=== PATIENT | female | born 1955 | race Caucasian/White ===

== ENCOUNTER → 2017-11-07 15:00 | Outpatient (CLI) | payer OTHER, SELFPAY | PROVIDERS: PCP Internal Medicine | DX: Z23 Encounter for immunization (principal) | CPT/HCPCS: 90471; 90686 ==

== ENCOUNTER → 2018-05-10 12:58 | Outpatient (CLI) | payer OTHER, SELFPAY | PROVIDERS: PCP Internal Medicine; Visit Provider Internal Medicine | DX: M85.851 Other specified disorders of bone density and structure, right thigh (principal); Z78.0 Asymptomatic menopausal state; Z90.722 Acquired absence of ovaries, bilateral | CPT/HCPCS: 77080 ==

== ENCOUNTER → 2018-05-25 14:07 | Outpatient (CLI) | payer OTHER, SELFPAY ==
[2018-05-25 15:37] LABS: Blood Urea Nitrogen 16 mg/dL (7-17); Estimated Glomerular Filt Rate > 60.0 mL/min (>60)
== END ==
PROVIDERS: PCP Internal Medicine; Visit Provider Internal Medicine
DX: M89.9 Disorder of bone, unspecified (principal)
CPT/HCPCS: 36415; 82565; 84520

== ENCOUNTER → 2018-10-29 07:52 | Outpatient (CLI) | payer OTHER, SELFPAY ==
[2018-10-29 09:13] LABS: Aspartate Aminotransferase 42 IU/L (14-36); BUN Creatinine Ratio 52.5 (6-22); Blood Urea Nitrogen 21 mg/dL (7-17); Calcium 10.1 mg/dL (8.4-10.2); Carbon Dioxide 27 mmol/L (22-32); Chloride 98 mmol/L (98-107); Cholesterol 116 mg/dL (140-199); Estimated Glomerular Filt Rate > 60.0 mL/min (>60); Glucose 122 mg/dL (80-110); HDL Cholesterol 46 mg/dL (40-60); HEMOLYSIS < 15 (0-50); LDL Cholesterol Calculated 30 mg/dL (<100); Potassium 3.6 mmol/L (3.4-5.1); Sodium 139 mmol/L (137-145); Triglycerides 199 mg/dL (35-150)
[2018-11-01 15:29] LABS: Parathyroid Hormone Int 22 pg/mL (14-64)
== END ==
PROVIDERS: PCP Internal Medicine; Visit Provider Internal Medicine
DX: I10 Essential (primary) hypertension (principal); E78.2 Mixed hyperlipidemia; E21.3 Hyperparathyroidism, unspecified
CPT/HCPCS: 36415; 80048; 80061; 83970; 84450

== ENCOUNTER → 2019-10-13 15:22 | Outpatient (CLI) | payer OTHER, SELFPAY ==
[2019-10-14 10:47] LABS: COVID19 Sendout Not Detected (Not Detect)
== END ==
PROVIDERS: PCP Internal Medicine; Visit Provider Nurse Practitioner
DX: J02.9 Acute pharyngitis, unspecified (principal); R05 Cough; Z11.59 Encounter for screening for other viral diseases
CPT/HCPCS: 87635

== ENCOUNTER 2019-10-16 01:47 | Emergency (ER) | payer OTHER, SELFPAY ==
[2019-10-16 01:56] VITALS: BP 142/63; PULSE 93; RESP 19; TEMP 37.5; O2SAT 97; BMI 36.6
--- NOTE | 2019-10-16 02:13 | DI.RAD.S_ITS ---
PROCEDURE: XR CHEST 2V INDICATIONS: worsening cough with shortness of breath TECHNIQUE: 2 views of the chest were acquired. [facility], CR, CHEST 1 VIEW, 07/06/2008, 14:47. in theCOMPARISON: FINDINGS: Surgical changes and devices: Surgical clips at the GE junction is stable.. Lungs and pleura: Lungs are clear. No pleural effusions or pneumot right upper lobe are stable. horax. Calcified Mediastinum: Mediastinal contours are normal. Heart size is normal. Bones and chest wall: No suspicious bony abnormalities. Soft tissues appear unremarkable. IMPRESSION: No acute cardiopulmonary disease process. Dictated by: Joyce Falk MD, PhD on 10/16/2019 at 9:07 Approved by: Joyce Falk MD, PhD on 10/16/2019 at 9:09
--- NOTE | 2019-10-16 03:36 | ED.URI ---
HPI - URI/Sore Throat General Chief Complaint: Upper Respiratory Symptoms Stated Complaint: cough, green sputum, hoarse Time Seen by Provider: 10/16/19 03:20 Source: patient Mode of arrival: Ambulatory Limitations: no limitations History of Present Illness HPI Narrative: Patient complains cough cold congestion fever body aches for the past 5 days. Started last Monday. On Monday had coronavirus test which was negative. Patient denies any lung problems. Has history of diabetes. Has not been able seen her family doctor yet. Does not smoke. Complaints of sore throat as well secondary to coughing causing hoarseness MD Complaint: fever, cough, sore throat, rhinorrhea and nasal congestion Related Data Home Medications Medication Instructions Recorded Confirmed Multimineral/Multivitamin 1 tab PO QDAY #0 tab 11/09/12 10/13/19 (THERAGRAN M ) aspirin 81 mg PO QDAY #0 11/09/12 10/13/19 metformin [Glucophage XR] 500 mg NG BID #0 11/09/12 10/13/19 polyethylene glycol 3350 [Miralax] 17 gm PO QDAY #0 pds 11/13/12 10/13/19 acetaminophen 325 mg capsule 650 mg PO Q6H PRN 02/10/19 10/13/19 carvedilol 6.25 mg tablet 6.25 mg PO DAILY tab 02/10/19 10/13/19 rosuvastatin 40 mg tablet 40 mg PO DAILY 02/10/19 10/13/19 telmisartan 80 mg tablet 80 mg PO DAILY 02/10/19 10/13/19 Previous Rx's Medication Instructions Recorded albuterol sulfate [Ventolin HFA] 2 inhalation INHALATION QID PRN 10/16/19 #6.7 gram benzonatate 100 mg PO TID PRN #20 cap 10/16/19 Allergies Allergy/AdvReac Type Severity Reaction Status Date / Time adhesive tape [ADHESIVE TAPE] Allergy Unknown Verified 10/13/19 15:15 amlodipine Allergy peripheral Verified 10/13/19 15:15 edema lisinopril AdvReac cough Verified 10/13/19 15:15 Review of Systems Review of Systems Narrative: GENERAL: Complains chills, fatigue, malaise, fever, sweats. HEENT: Denies sinus pain, ear pain, complains of sore throat, denies difficulty swallowing, dizziness. RESPIRATORY: Denies dyspnea, complains cough, denies wheezing, hemoptysis, complains of sputum. CARDIOVASCULAR: Denies chest pain, palpitations, orthopnea, edema, GASTROINTESTINAL: Denies nausea, vomiting, abdominal pain, diarrhea, constipation, melena. : Denies dysuria, frequency, incontinence, hematuria, urinary retention. MUSCULOSKELETAL: denies weakness, joint pain, or bony pain SKIN: Denies rash, skin lesions, or other NEUROLOGIC: Denies weakness, headache, numbness, change in speech, confusion, seizures, incoordination. PSYCHIATRIC: No concerning psychosocial issues. ROS Unobtainable: All systems reviewed & are unremarkable except as noted in HPI and below Patient History Social History Smoking Status: Never smoker Smoking Status: Never smoker Substance Use Type: does not use Exam Narrative Exam Narrative: GENERAL: patient appears stated age. Well-nourished, well-developed patient, in no distress, not toxic, has hoarse voice HEAD: Atraumatic. Normocephalic. EYES: Pupils equal round and reactive. Extraocular motions intact. No scleral icterus. No injection or drainage. ENT: Nose without bleeding, purulent drainage. There is edema of nasal mucosa. Throat without erythema, tonsillar hypertrophy or exudate. Airway patent. NECK: Trachea midline. Non tender CARDIOVASCULAR: Regular rate and rhythm without murmurs, gallops, or rubs. RESPIRATORY: Clear to auscultation. Breath sounds equal bilaterally. No wheezes, rales, or rhonchi. Speaks in full sentences GASTROINTESTINAL: Abdomen soft, non-tender, nondistended. EXTREMITIES: No edema or joint tenderness. BACK: Nontender without deformity or crepitance. No flank tenderness. NEURO: AOx4. SKIN: No rash or erythema of visible areas PSYCH: Not anxious, is cooperative Initial Vital Signs Initial Vital Signs: Vital Signs Temperature 99.5 F 10/16/19 01:56 Pulse Rate 93 H 10/16/19 01:56 Respiratory Rate 19 10/16/19 01:56 Blood Pressure 142/63 H 10/16/19 01:56 Pulse Oximetry 97 10/16/19 01:56 Course Orders Ordered: ED Orders 10/16/19 02:13 XR chest 2V Stat Discontinued Medications Albuterol (Ventolin Hfa (Vent/Covid R/O)) 2 puff INH NOW ONE Stop: 10/16/19 03:36 Last Admin: 10/16/19 03:45 Dose: 2 puff Documented by: MANDEEP Benzonatate (Tessaldenisse Perles) 200 mg PO NOW ONE Stop: 10/16/19 03:35 Last Admin: 10/16/19 03:50 Dose: 200 mg Documented by: CLAUDIA Reevaluation(s) Reevaluation #1: Patient agrees no blood work at this time. No antibiotics as likely viral bronchitis. Not toxic at discharge. Time: 03:46 Vital Signs Vital signs: Vital Signs - 8 hr 10/16/19 01:56 10/16/19 03:45 10/16/19 04:00 Temperature 99.5 F Pulse Rate 93 H 85 82 Respiratory Rate 19 18 16 Blood Pressure 142/63 H 154/68 H Pulse Oximetry 97 95 95 MDM - URI/Sore Throat Imaging Data Chest x-ray: My Impression: No acute process MDM Narrative Medical decision making narrative: No laboratory studies indicated. Patient not toxic. Vital signs reviewed. 97% room air with clear lung sounds. No fever Discharge Plan Departure Patient Disposition: Home Clinical Impression: Bronchitis Discharge Date/Time: 10/16/19 04:00 Instructions: DI for Acute Bronchitis Activity Restrictions/Additional Instructions: Prescriptions have been sent to your pharmacy. See family doctor this week for recheck. Return if worse. Keep well hydrated. Use Tylenol or ibuprofen for pain and fever. Prescriptions: New benzonatate 100 mg capsule 100 mg PO TID PRN (Reason: cough) Qty: 20 RF: 0 albuterol sulfate [Ventolin HFA] 90 mcg/actuation HFA aerosol inhaler 2 inhalation INHALATION QID PRN (Reason: shortness of breath or wheezing) Qty: 6.7 RF: 0 No Action telmisartan [Micardis] 80 mg tablet 80 mg PO DAILY RF: 0 carvedilol [Coreg] 6.25 mg tablet 6.25 mg PO DAILY RF: 0 acetaminophen [Tylenol] 325 mg capsule 650 mg PO Q6H PRNRF: 0 rosuvastatin [Crestor] 40 mg tablet 40 mg PO DAILY RF: 0 metformin [Glucophage XR] 500 MG tablet extended release 24 hr 500 mg NG BID Qty: 0 RF: 0 Multimineral/Multivitamin (THERAGRAN M ) 1 tab PO QDAY Qty: 0 RF: 0 aspirin 81 MG tablet,delayed release (DR/EC) 81 mg PO QDAY Qty: 0 RF: 0 polyethylene glycol 3350 [Miralax] 119 GM powder 17 gm PO QDAY Qty: 0 RF: 0 Referrals: Maverick Hagan MD [Primary Care Provider] - Stand Alone Forms: Work Release Note
[2019-10-16 03:45] VITALS: PULSE 85; RESP 18; O2SAT 95
[2019-10-16] MEDS: ALBUTEROL HFA 200 PUFF/18 GM INH (COVID POS/VENT PTS) INH (03:45)
[2019-10-16] MEDS: BENZONATATE 100 MG CAPSULE 200 MG PO (03:50)
[2019-10-16 04:00] VITALS: BP 154/68; PULSE 82; RESP 16; O2SAT 95
== END 2019-10-16 04:00 | disposition home or self-care (01) ==
PROVIDERS: Emergency Provider Emergency Medicine; PCP Internal Medicine
DX: J20.9 Acute bronchitis, unspecified (principal); R06.02 Shortness of breath; R50.9 Fever, unspecified; J02.9 Acute pharyngitis, unspecified; E11.9 Type 2 diabetes mellitus without complications
CPT/HCPCS: 71046; 94640; 99283; 99284; A9270

== ENCOUNTER → 2019-12-10 | Outpatient (CLI) | payer OTHER, SELFPAY | PROVIDERS: PCP Internal Medicine; Referring Provider Internal Medicine; Visit Provider Internal Medicine | DX: Z23 Encounter for immunization (principal) | CPT/HCPCS: 90471; 90686 ==

== ENCOUNTER → 2020-02-26 14:07 | Outpatient (CLI) | payer OTHER, SELFPAY ==
[2020-02-26] MEDS: COVID-19 VACC(MODERNA-1)/PF 100 MCG/0.5 ML VIAL IM (14:12)
== END ==
PROVIDERS: PCP Internal Medicine; Visit Provider Internal Medicine
DX: Z23 Encounter for immunization (principal)
CPT/HCPCS: 0011A; 91301

== ENCOUNTER → 2020-03-24 16:15 | Outpatient (CLI) | payer OTHER, SELFPAY ==
[2020-03-24] MEDS: COVID-19 VACC #2, MRNA(MOD) 100 MCG/0.5 ML VIAL IM (16:20)
== END ==
PROVIDERS: PCP Internal Medicine; Visit Provider Internal Medicine
DX: Z23 Encounter for immunization (principal)
CPT/HCPCS: 0012A; 91301

== ENCOUNTER → 2020-05-13 08:42 | Outpatient (CLI) | payer OTHER, SELFPAY ==
[2020-05-13 10:23] LABS: Aspartate Aminotransferase 35 IU/L (14-36); BUN Creatinine Ratio 31.3 (6-22); Blood Urea Nitrogen 15 mg/dL (7-17); Calcium 9.6 mg/dL (8.4-10.2); Carbon Dioxide 31 mmol/L (22-32); Chloride 97 mmol/L (98-107); Cholesterol 109 mg/dL (140-199); Estimated Glomerular Filt Rate > 60.0 mL/min (>60); Glucose 121 mg/dL (80-110); HDL Cholesterol 57 mg/dL (40-60); HEMOLYSIS < 15 (0-50); LDL Cholesterol Calculated 34 mg/dL (<100); Potassium 3.8 mmol/L (3.4-5.1); Sodium 138 mmol/L (137-145); Triglycerides 90 mg/dL (35-150)
== END ==
PROVIDERS: PCP Internal Medicine; Referring Provider Internal Medicine; Visit Provider Internal Medicine
DX: E78.2 Mixed hyperlipidemia (principal); I10 Essential (primary) hypertension
CPT/HCPCS: 36415; 80048; 80061; 84450

== ENCOUNTER → 2020-11-17 14:24 | Outpatient (CLI) | payer OTHER, SELFPAY ==
[2020-11-17 15:03] LABS: COVID19 -Nasal RAPID Negative (Negative)
== END ==
PROVIDERS: PCP Internal Medicine; Visit Provider Physician Assistant
DX: R49.0 Dysphonia (principal); Z20.822 Contact with and (suspected) exposure to COVID-19
CPT/HCPCS: 87635

== ENCOUNTER → 2020-12-01 | Outpatient (CLI) | payer OTHER, SELFPAY | PROVIDERS: PCP Internal Medicine; Referring Provider Internal Medicine; Visit Provider Internal Medicine | DX: Z23 Encounter for immunization (principal) | CPT/HCPCS: 90471; 90662 ==

== ENCOUNTER → 2021-06-10 11:42 | Outpatient (CLI) | payer OTHER, MEDICARE, SELFPAY ==
[2021-06-10 12:51] LABS: BUN Creatinine Ratio 21.3 (6-22); Blood Urea Nitrogen 10 mg/dL (7-17); Calcium 9.3 mg/dL (8.4-10.2); Carbon Dioxide 31 mmol/L (22-32); Chloride 98 mmol/L (98-107); Estimated Glomerular Filt Rate > 60 mL/min (>60); Glucose 134 mg/dL (80-110); HEMOLYSIS < 15 (0-50); Potassium 3.7 mmol/L (3.4-5.1); Sodium 136 mmol/L (137-145)
== END ==
PROVIDERS: PCP Internal Medicine; Referring Provider Family Medicine; Visit Provider Family Medicine
DX: K43.9 Ventral hernia without obstruction or gangrene (principal)
CPT/HCPCS: 36415; 80048

== ENCOUNTER → 2021-06-11 09:20 | Outpatient (CLI) | payer OTHER, MEDICARE, SELFPAY ==
--- NOTE | 2021-06-11 | DI.CT.S_ITS ---
PROCEDURE: CT ABDOMEN PELVIS W CON INDICATIONS: Ventral hernia without obstruction or gangrene TECHNIQUE: After the administration of oral and intravenous contrast, axial sections were acquired from the lung bases to the pubic symphysis. Coronal and sagittal reformats were performed. For radiation dose reduction, the following was used: automated exposure control, adjustment of mA and/or kV according to patient size. COMPARISON:[facility], CT, ABDOMEN/PELVIS WITH CONTRAST, 04/18/2008, 11:25. FINDINGS: Image quality: Excellent. Lung bases: Unremarkable. Heart: No significant findings. ABDOMEN: Liver: Mild hepatomegaly. Mild diffuse hepatic steatosis.. Gallbladder: Surgically absent Biliary ducts: Unremarkable. Pancreas: Unremarkable. Spleen: Chronic calcified splenic granulomata. Normal size.. Adrenal Glands: Unremarkable. Kidneys and Ureters: Unremarkable. Stomach and Bowel: Stomach, small bowel loops, and colon are unremarkable. Peritoneum: No abnormal intraperitoneal fluid. No free air. Ventral Wall: There is a wide mouth ventral lower abdominal wall defect measuring approximately 5 cm in craniocaudal and transverse diameter which contains multiple loops of nonobstructed bowel. There may have been interval repair of a more superior ventral hernia. There is a small residual ventral abdominal wall defect containing a bulging loop of bowel into the subcutaneous tissue. There is also thickening of the subcutaneous tissues and abdominal wall suggesting postsurgical change. Abdominal Nodes: No retroperitoneal or mesenteric adenopathy by size criteria. Vessels: Aorta and inferior vena cava are normal in size. PELVIS: Pelvic Organs: Uterus is surgically absent.. Bladder: Unremarkable. Pelvic Nodes: No enlarged lymph nodes. Miscellaneous: No inguinal hernias are seen. Pelvic floor relaxation with cystocele and rectocele. Bones: Lumbar degenerative change. No lytic or blastic bony lesions. No compression fractures. IMPRESSION: 1. Large inferior ventral abdominal wall defect containing nonobstructed bowel. 2. Small ventral hernia which likely has been repaired in the past, containing a little bit of bulging bowel wall. 3. Remote cholecystectomy and hysterectomy. 4. Significant pelvic floor relaxation. 5. Mild hepatomegaly, mild diffuse hepatic steatosis. Dictated by: Nickolas Yen M.D. on 06/11/2021 at 14:44 Approved by: Nickolas Yen M.D. on 06/11/2021 at 14:53
== END ==
PROVIDERS: PCP Internal Medicine; Referring Provider Internal Medicine; Visit Provider Internal Medicine
DX: K43.9 Ventral hernia without obstruction or gangrene (principal); K76.0 Fatty (change of) liver, not elsewhere classified; Z90.49 Acquired absence of other specified parts of digestive tract; Z90.710 Acquired absence of both cervix and uterus
CPT/HCPCS: 74177; Q9967

== ENCOUNTER → 2021-11-30 09:52 | Outpatient (CLI) | payer OTHER, SELFPAY | PROVIDERS: PCP Internal Medicine; Referring Provider Internal Medicine; Visit Provider Internal Medicine | DX: Z23 Encounter for immunization (principal) | CPT/HCPCS: 90471; 90662 ==

== ENCOUNTER → 2022-02-23 11:04 | Outpatient (CLI) | payer MEDICARE, OTHER, SELFPAY ==
[2022-02-23 12:30] LABS: Hemoglobin 12.8 g/dL (12.0-16.0); Mean Corpuscular HGB Conc 33.7 % (30-36); Mean Corpuscular Hemoglobin 29.8 PG (26-34); Mean Corpuscular Volume 88.6 fL (80-100); Platelet Count 261 X10^3/uL (150-400); Red Blood Cell Count 4.29 X10^6/uL (4.0-5.2); Red Cell Distribution Width 14.2 % (11.6-14.8); White Blood Cell Count 5.4 X10^3/uL (4.5-11.0)
[2022-02-23 13:16] LABS: Alanine Aminotransferase 31 IU/L (<35); Albumin 4.4 g/dL (3.5-5.0); Albumin Globulin Ratio 1.5 (1.0-2.8); Alkaline Phosphatase 63 U/L (38-126); Aspartate Aminotransferase 27 IU/L (14-36); BUN Creatinine Ratio 31.7 (6-22); Bilirubin Total 0.5 mg/dL (0.2-1.3); Bilirubin Unconjugated 0.4 mg/dL (0.0-1.1); Blood Urea Nitrogen 13 mg/dL (7-17); Calcium 9.6 mg/dL (8.4-10.2); Carbon Dioxide 31 mmol/L (22-32); Chloride 98 mmol/L (98-107); Cholesterol 221 mg/dL (140-199); Estimated Glomerular Filt Rate > 60 mL/min (>60); Globulin 2.9 g/dL (1.7-4.1); Glucose 92 mg/dL (80-110); HDL Cholesterol 76 mg/dL (40-60); HEMOLYSIS < 15 (0-50); LDL Cholesterol Calculated 119 mg/dL (<100); Potassium 3.8 mmol/L (3.4-5.1); Sodium 137 mmol/L (137-145); Total Protein 7.3 g/dL (6.3-8.2); Triglycerides 132 mg/dL (35-150)
[2022-02-23 13:38] LABS: TSH w/ Reflex to FT4 1.04 uIU/mL (0.47-4.68)
[2022-02-23 16:22] LABS: Creatinine Urine Random 13.1 mg/dL
[2022-02-23 16:35] LABS: Microalbumin Urine Random < 0.6 mg/dL (0-1.6)
== END ==
PROVIDERS: PCP Internal Medicine; Referring Provider Internal Medicine; Visit Provider Internal Medicine
DX: E11.69 Type 2 diabetes mellitus with other specified complication (principal); E78.2 Mixed hyperlipidemia; E78.5 Hyperlipidemia, unspecified; I10 Essential (primary) hypertension
CPT/HCPCS: 36415; 80053; 80061; 80076; 82043; 82570; 83036; 84443; 85027

== ENCOUNTER → 2022-08-29 14:45 | Outpatient (CLI) | payer MEDICARE, OTHER, SELFPAY ==
--- NOTE | 2022-08-29 | DI.MG.S_ITS ---
BILATERAL DIGITAL SCREENING MAMMOGRAM 3D/2D WITH CAD: 08/29/2022 CLINICAL: Routine screening. Comparison is made to exams dated: 03/25/2020 mammogram, 01/07/2019 mammogram, and 01/11/2017 mammogram - [facility]. There are scattered areas of fibroglandular density in both breasts (category b / 25%-50% glandular tissue). Current study was also evaluated with a Computer Aided Detection (CAD) system. There are benign calcifications in both breasts. No significant masses, calcifications, or other findings are seen in either breast. There has been no significant interval change. IMPRESSION: BENIGN There is no mammographic evidence of malignancy. A 1 year screening mammogram is recommended. Based on the Tyrer Cuzick model (a risk assessment model) the patient's lifetime risk is 3.9% and her 10 year risk is 1.9%. According to the ACR, ACS, and NCCN guidelines, an annual breast MRI exam along with mammogram is recommended if the patient's lifetime risk is 20% or greater. This exam was interpreted at Station ID: [id number]. NOTE: For mammograms, a report in lay terms will be sent to the patient. Approximately 15% of breast malignancies will not be visualized mammographically. In the management of a palpable breast mass, a negative mammogram must not discourage biopsy of a clinically suspicious lesion. Electronically Signed By: Essie johansen/geovanna:08/30/2022 10:57:23 letter sent: Normal Exam ACR BI-RADS Category 2: Benign Finding(s) 3342F
--- NOTE | 2022-08-29 14:46 | DI.RAD.S_ITS ---
Bone Density Report Name: DIANA ALFARO Age: 66 Sex: Female Ethnicity: White Date of : 1955 Indication: osteopenia; Referring Provider: NIDIA GATICA Study: Bone densitometry was performed. Exam Date: August 29, 2022 Accession number: [id number] Bone Density: Region BMD T-score Z-score Classification AP Spine(L1-L4) 0.910 -1.2 0.7 Osteopenia Femoral Neck (Left) 0.612 -2.1 -0.5 Osteopenia Total Hip (Left) 0.756 -1.5 -0.2 Osteopenia Femoral Neck (Right) 0.662 -1.7 -0.1 Osteopenia Total Hip (Right) 0.745 -1.6 -0.3 Osteopenia Total Hip Mean 0.750 -1.6 -0.3 Osteopenia World Health Organization criteria for BMD impression classify patients as: Normal (T-score at or above -1.0), Osteopenia (T-score between -1.0 and -2.5), or Osteoporosis (T-score at or below -2.5). 10-year Fracture Risk(1): Major Osteoporotic Fracture 11% Hip Fracture 2.0% Reported Risk Factors: [place] (), Neck BMD=0.612, BMI=30.5 (1) FRAX(R) Version 3.08. Fracture probability calculated for an untreated patient. Fracture probability may be lower if the patient has received treatment. Previous Exams: -- Region Exam Age BMD T-score BMD Change BMD Change Date g/cm2 vs Baseline vs Previous -- AP Spine (L1-L4) 08/29/2022 66 0.910 -1.2 0.044 (5.1%)# 0.044 (5.1%)# 05/10/2018 62 0.866 -1.6 Total Hip(Left) 08/29/2022 66 0.756 -1.5 0.004 (0.5%)# 0.004 (0.5%)# 05/10/2018 62 0.752 -1.6 Total Hip(Right) 08/29/2022 66 0.745 -1.6 0.025 (3.5%)# 0.025 (3.5%)# 05/10/2018 62 0.720 -1.8 -- *Denotes significance at 95% confidence level, LSC for AP Spine = 0.022 g/cm2, LSC for Total Hip = 0.027 g/cm2 # Denotes dissimilar scan types or analysis methods Impression: The patient has low bone mass, based on the Left Femoral Neck T-score. The patient has an estimated ten-year risk of hip fracture of 2% and an estimated ten-year risk of major fracture of 11%, based on the WHO FRAX algorithm. No significant bone loss was observed. Discussion: BONE DENSITY IS LOW AT ONE OR MORE SKELETAL SITES. This patient's lowest T-score is low at one or more skeletal sites. It meets the World Health Organization's (WHO) criteria for low bone mass (T-score between -1.0 and -2.5). The patient's 10-year risk of fracture as calculated by FRAX is less than the threshold where pharmacological therapy is recommended by the National Osteoporosis Foundation (NOF). However, all treatment decisions require clinical judgment and consideration of individual patient factors, including patient preferences, comorbidities, previous drug use, risk factors not captured in the FRAX model (e.g., frailty, falls, vitamin D deficiency, increased bone turnover, interval significant decline in bone density) and possible under or overestimation of fracture risk by FRAX. The patient should follow a healthful lifestyle (good nutrition with adequate calcium and vitamin D, and appropriate weight-bearing exercise). Follow-Up: Consider repeating this study in 2 to 3 years to reassess this patient's status, or sooner if there is some new clinical indication. Reported by: WILDA DRUMMOND M.D on 08/29/2022 3:07:00 PM.
== END ==
PROVIDERS: PCP Internal Medicine; Referring Provider Internal Medicine; Visit Provider Internal Medicine
DX: M85.852 Other specified disorders of bone density and structure, left thigh (principal); Z12.31 Encounter for screening mammogram for malignant neoplasm of breast; Z78.0 Asymptomatic menopausal state; E78.2 Mixed hyperlipidemia; I10 Essential (primary) hypertension; E11.69 Type 2 diabetes mellitus with other specified complication; Z85.09 Personal history of malignant neoplasm of other digestive organs
CPT/HCPCS: 36415; 77063; 77067; 77080; 80048; 82043; 82570; 83036; 84450

== ENCOUNTER → 2022-08-29 15:19 | Outpatient (CLI) | payer MEDICARE, OTHER, SELFPAY ==
[2022-08-29 16:24] LABS: Aspartate Aminotransferase 31 IU/L (14-36); BUN Creatinine Ratio 33.3 (6-22); Blood Urea Nitrogen 15 mg/dL (7-17); Calcium 9.4 mg/dL (8.4-10.2); Carbon Dioxide 29 mmol/L (22-32); Chloride 101 mmol/L (98-107); Estimated Glomerular Filt Rate > 60 mL/min (>60); Glucose 102 mg/dL (80-110); HEMOLYSIS < 15 (0-50); Potassium 3.7 mmol/L (3.4-5.1); Sodium 139 mmol/L (137-145)
[2022-08-29 16:56] LABS: Creatinine Urine Random 15.7 mg/dL
[2022-08-29 17:22] LABS: Microalbumin Urine Random < 0.6 mg/dL (0-1.6)
[2022-08-30 07:09] LABS: Labcorp Hemoglobin (Hb) A1c 5.8 % (4.8-5.6)
== END ==
PROVIDERS: PCP Internal Medicine; Referring Provider Internal Medicine; Visit Provider Internal Medicine
DX: E78.2 Mixed hyperlipidemia (principal); I10 Essential (primary) hypertension; E11.69 Type 2 diabetes mellitus with other specified complication
CPT/HCPCS: 36415; 80048; 82043; 82570; 83036; 84450

== ENCOUNTER 2023-01-14 21:54 | Emergency (ER) | payer MEDICARE, OTHER, SELFPAY ==
[2023-01-14 22:00] VITALS: BP 190/83; PULSE 76; RESP 18; TEMP 36.4; O2SAT 98; BMI 31.1
--- NOTE | 2023-01-14 22:10 | PC.NURSE ---
hx of uti took meds but does not think it cleared
--- NOTE | 2023-01-14 22:29 | ED.GENADULT ---
HPI - General Adult General Chief complaint: Urogenital-Female Stated complaint: UTI Time Seen by Provider: 01/14/23 22:05 Source: patient Mode of arrival: Ambulatory History of Present Illness HPI narrative: 67-year-old female. Recently was seen and diagnosed with a urinary tract infection. Was placed on Macrobid. Completed the course of Macrobid. Has now developed new/recurrence of symptoms. Urinary frequency/burning and urgency and hesitancy. No vomiting. She did take some ibuprofen prior to arrival. No vaginal bleeding or change in bowel habits. Related Data Home Medications Medication Instructions Recorded Confirmed Multimineral/Multivitamin 1 tab PO QDAY #0 tabs 11/09/12 01/06/23 (THERAGRAN M ) polyethylene glycol 3350 17 17 gm PO QDAY ##0 11/13/12 01/06/23 gram/dose oral powder (Miralax) acetaminophen 325 mg capsule 650 mg PO Q6H PRN 02/10/19 01/06/23 (Tylenol) Previous Rx's Medication Instructions Recorded aspirin 81 mg tablet,delayed 81 mg PO QDAY #90 tabs 11/22/21 release albuterol sulfate 90 mcg/actuation 2 inh inhalation QID PRN shortness 02/17/22 aerosol inhaler (Ventolin HFA) of breath or wheezing #6.7 grams carvedilol 3.125 mg tablet 3.125 mg PO BID #180 tabs 08/17/22 chlorthalidone 25 mg tablet 25 mg PO DAILY #90 tabs 08/17/22 potassium chloride 10 mEq 10 meq PO TID #270 tabs 08/17/22 tablet,extended release rosuvastatin 40 mg tablet (Crestor) 40 mg PO DAILY #90 tabs 08/17/22 telmisartan 80 mg tablet (Micardis) 80 mg PO DAILY #90 tabs 08/17/22 cephalexin 500 mg capsule 500 mg PO BID 7 days #14 caps 01/14/23 phenazopyridine 100 mg tablet 100 mg PO TID PRN pain 6 doses #6 01/14/23 (Pyridium) tabs Allergies Allergy/AdvReac Type Severity Reaction Status Date / Time adhesive tape [ADHESIVE TAPE] Allergy Unknown Verified 01/06/23 14:17 amlodipine Allergy peripheral Verified 01/06/23 14:17 edema lisinopril AdvReac cough Verified 01/06/23 14:17 Review of Systems Constitutional Constitutional: Reports system reviewed and no additional complaints, except as documented Gastrointestinal Gastrointestinal: Reports system reviewed and no additional complaints, except as documented Genitourinary Genitourinary: Reports system reviewed and no additional complaints, except as documented Patient History Medical History History of gastrointestinal stromal tumor (GIST) History of colonic polyps Osteopenia Wears glasses Shoulder pain (~1998) Measles (~1959) Chicken pox (~1984) Overweight Ventral hernia without obstruction or gangrene Slow transit constipation Allergic rhinitis Asthma, mild intermittent Mixed hyperlipidemia Essential hypertension DM type 2 with diabetic dyslipidemia Surgical History (Updated 08/17/22 @ 16:17 by Maverick Hagan MD) Anesthesia History of surgery (~06/2010) History of appendectomy (~10/1998) S/P total hysterectomy and bilateral salpingo-oophorectomy (~10/2018) History of cholecystectomy (~10/1998) Parathyroid adenoma (~06/2015) History of ventral hernia repair (~10/13/21) History of surgical removal of skin lesion (~2020) Family History Father Diabetes mellitus Hypertension Hyperlipidemia Mother Diabetes mellitus History of heart disease Hypertension Brother Diabetes mellitus Hypertension Grandfather Cancer History of heart disease Hyperlipidemia Grandmother History of heart disease Hypertension Grandfather Cancer Grandmother Cancer Social History details: , in partnership with [facility] Smoking Status: Never smoker Smoking Status: Never smoker Substance Use Type: does not use Exam Initial Vital Signs Initial Vital Signs: Vital Signs Temperature 97.6 F 01/14/23 22:00 Pulse Rate 76 01/14/23 22:00 Respiratory Rate 18 01/14/23 22:00 Blood Pressure 190/83 H 01/14/23 22:00 Pulse Oximetry 98 01/14/23 22:00 Oxygen Delivery Method Room Air 01/14/23 22:00 HENMT Head: normal to inspection and normocephalic GI Inspection: non-distended Palpation: tender (Suprapubic/lower abdomen) Back/Spine/Pelvis Back: No CVA tenderness Course Orders Ordered: ED Orders 11/25/23 22:10 Urine Culture Stat Urine Microscopic Stat Discontinued Medications Cephalexin HCl (Cephalexin 250 Mg Capsule) 500 mg PO NOW ONE Stop: 01/14/23 22:30 Last Admin: 01/14/23 22:36 Dose: 500 mg Documented By: MARIS Phenazopyridine HCl (Phenazopyridine 100 Mg Tablet) 100 mg PO NOW ONE Stop: 01/14/23 22:30 Last Admin: 01/14/23 22:36 Dose: 100 mg Documented By: MARIS Vital Signs Vital signs: Vital Signs - 8 hr 01/14/23 22:00 Temperature 97.6 F Pulse Rate 76 Respiratory Rate 18 Blood Pressure 190/83 H Pulse Oximetry 98 Oxygen Delivery Method Room Air Medical Decision Making Medical Records Medical records reviewed: Yes I reviewed the patient's medical records. Lab Data Lab results reviewed: Yes I reviewed the patient's lab results. Labs: Lab Results 01/14/23 Range/Units 22:10 Urine RBC 0-1/hpf (0-5/HPF) Urine WBC 30-100/hpf H (0-5/HPF) Ur Squamous Epith Cells 0-1 /hpf (0-5/HPF) Urine Bacteria Many (>30) H (None) Urine Dip Bedside Urine Glucose Negative Bedside Urine Bilirubin - Negative Bedside Urine Ketone - Negative Urine Specific [place] 1.015 Bedside Urine Occult Blood + Bedside Urine pH 6 Bedside Urine Protein - Negative Bedside Urine Urobilinogen - Negative Bedside Urine Nitrite - Negative Bedside Urine Leukocytes +++ 500 Esterase Point of care testing: Urine Dip Bedside Urine Glucose Negative Bedside Urine Bilirubin - Negative Bedside Urine Ketone - Negative Urine Specific [place] 1.015 Bedside Urine Occult Blood + Bedside Urine pH 6 Bedside Urine Protein - Negative Bedside Urine Urobilinogen - Negative Bedside Urine Nitrite - Negative Bedside Urine Leukocytes +++ 500 Esterase MDM Narrative Medical decision making narrative: Symptoms and urinalysis is consistent with a UTI. Review of medical record shows no microscopic that was ordered from the prior UTI. Unsure whether not the infection today is reoccurrence/Krupa infection. We will avoid Macrobid as this did not seem to help her so will try a new antibiotic. Will also do Pyridium. No Indication for admission to the hospital. Is tolerating oral intake. Discharge Plan Departure Patient Disposition: Home Clinical Impression: Urinary tract infection Instructions: DI for Urinary Tract Infection (UTI) Activity Restrictions/Additional Instructions: A urine culture was pending at the time of your discharge and we will contact you if we need to change antibiotics based on the results of this. Prescription for antibiotics and Pyridium was sent to the pharmacy of your choice. We start taking them as directed. Return to the emergency department for new or worsening symptoms. Prescriptions: New phenazopyridine [Pyridium] 100 mg tablet 100 mg PO TID PRN (Reason: pain) Qty: 6 0RF cephalexin 500 mg capsule 500 mg PO BID 7 Days Qty: 14 0RF No Action acetaminophen [Tylenol] 325 mg capsule 650 mg PO Q6H PRN Multimineral/Multivitamin (THERAGRAN M ) 1 tab PO QDAY Qty: 0 polyethylene glycol 3350 [Miralax] 119 GM powder 17 gm PO QDAY Qty: 0 aspirin 81 mg tablet,delayed release (DR/EC) 81 mg PO QDAY Qty: 90 0RF albuterol sulfate [Ventolin HFA] 90 mcg/actuation HFA aerosol inhaler 2 inh INHALATION QID PRN (Reason: shortness of breath or wheezing) Qty: 6.7 5RF carvedilol 3.125 mg tablet 3.125 mg PO BID Qty: 180 3RF Rx Instructions: must administer with a meal/food chlorthalidone 25 mg tablet 25 mg PO DAILY Qty: 90 3RF potassium chloride 10 mEq tablet extended release 10 meq PO TID Qty: 270 3RF rosuvastatin [Crestor] 40 mg tablet 40 mg PO DAILY Qty: 90 3RF telmisartan [Micardis] 80 mg tablet 80 mg PO DAILY Qty: 90 3RF Referrals: Maverick Hagan MD [Primary Care Provider] - Stand Alone Forms: Patient Portal/API
[2023-01-14 22:33] LABS: Bacteria Urine Many (>30); RBC Urine 0-1/HPF (0-5/HPF); Squamous Epithelial Cell Urine 0-1 /HPF (0-5/HPF); WBC Urine 30-100/HPF (0-5/HPF)
[2023-01-14] MEDS: PHENAZOPYRIDINE 100 MG TABLET PO (22:36)
[2023-01-14] MEDS: cephALEXin 250 MG CAPSULE 500 MG PO (22:36)
== END 2023-01-14 22:50 | disposition home or self-care (01) ==
PROVIDERS: Emergency Provider Emergency Medicine; PCP Internal Medicine
DX: N39.0 Urinary tract infection, site not specified (principal)
CPT/HCPCS: 81003; 81015; 87077; 87086; 87186; 99283

== ENCOUNTER → 2023-01-25 11:14 | Outpatient (CLI) | payer MEDICARE, OTHER, SELFPAY | PROVIDERS: PCP Internal Medicine; Visit Provider Nurse Practitioner Family | DX: R30.0 Dysuria (principal) | CPT/HCPCS: 87077; 87086; 87186; 87210 ==

== ENCOUNTER → 2023-02-24 11:03 | Outpatient (CLI) | payer MEDICARE, OTHER, SELFPAY ==
[2023-02-24 13:25] LABS: Hemoglobin A1C% w Est Avg Glu 5.6 % (4.0-6.0)
[2023-02-24 13:35] LABS: Aspartate Aminotransferase 37 IU/L (14-36); BUN Creatinine Ratio 32.7 (6-22); Blood Urea Nitrogen 16 mg/dL (7-17); Calcium 9.7 mg/dL (8.4-10.2); Carbon Dioxide 29 mmol/L (22-32); Chloride 99 mmol/L (98-107); Cholesterol 142 mg/dL (140-199); Estimated Glomerular Filt Rate > 60 mL/min (>60); Glucose 103 mg/dL (80-110); HDL Cholesterol 57 mg/dL (40-60); HEMOLYSIS < 15 (0-50); LDL Cholesterol Calculated 67 mg/dL (<100); Potassium 3.6 mmol/L (3.4-5.1); Sodium 137 mmol/L (137-145); Triglycerides 91 mg/dL (35-150)
== END ==
LOC: LAB 11:04
PROVIDERS: PCP Internal Medicine; Referring Provider Internal Medicine; Visit Provider Internal Medicine
DX: E78.2 Mixed hyperlipidemia (principal); E11.69 Type 2 diabetes mellitus with other specified complication; E78.5 Hyperlipidemia, unspecified
CPT/HCPCS: 36415; 80048; 80061; 83036; 84450

== ENCOUNTER → 2023-03-10 13:34 | Outpatient (CLI) | payer MEDICARE, OTHER, SELFPAY | PROVIDERS: PCP Internal Medicine; Visit Provider Physician Assistant Medical | DX: R39.9 Unspecified symptoms and signs involving the genitourinary system (principal) | CPT/HCPCS: 87077; 87086; 87186 ==

== ENCOUNTER → 2023-09-12 13:25 | Outpatient (CLI) | payer MEDICARE, OTHER, SELFPAY ==
[2023-09-12 14:37] LABS: Hemoglobin A1C% w Est Avg Glu 5.8 % (4.0-6.0)
[2023-09-12 14:54] LABS: BUN Creatinine Ratio 26.3 (6-22); Blood Urea Nitrogen 15 mg/dL (7-17); Calcium 9.5 mg/dL (8.4-10.2); Carbon Dioxide 26 mmol/L (22-32); Chloride 103 mmol/L (98-107); Estimated Glomerular Filt Rate > 60 mL/min (>60); Glucose 104 mg/dL (80-110); HEMOLYSIS < 15 (0-50); Potassium 3.7 mmol/L (3.4-5.1); Sodium 139 mmol/L (137-145)
[2023-09-12 17:02] LABS: Creatinine Urine Random 12.43 mg/dL
[2023-09-12 17:07] LABS: Microalbumin Urine Random < 0.6 mg/dL (0-1.6)
== END ==
PROVIDERS: PCP Internal Medicine; Referring Provider Internal Medicine; Visit Provider Internal Medicine
DX: E11.69 Type 2 diabetes mellitus with other specified complication (principal); E78.2 Mixed hyperlipidemia; I10 Essential (primary) hypertension; E78.5 Hyperlipidemia, unspecified
CPT/HCPCS: 36415; 80048; 82043; 82570; 83036

== ENCOUNTER → 2024-03-29 12:02 | Outpatient (CLI) | payer MEDICARE, OTHER, SELFPAY ==
[2024-03-29 12:48] LABS: Aspartate Aminotransferase 39 IU/L (14-36); BUN Creatinine Ratio 29.4 (6-22); Blood Urea Nitrogen 15 mg/dL (7-17); Calcium 9.8 mg/dL (8.4-10.2); Carbon Dioxide 27 mmol/L (22-32); Chloride 100 mmol/L (98-107); Cholesterol 169 mg/dL (140-199); Estimated Glomerular Filt Rate > 60 mL/min (>60); Glucose 115 mg/dL (80-110); HDL Cholesterol 71 mg/dL (40-60); HEMOLYSIS < 15 (0-50); LDL Cholesterol Calculated 72 mg/dL (<100); Potassium 3.9 mmol/L (3.4-5.1); Sodium 137 mmol/L (137-145); Triglycerides 129 mg/dL (35-150)
[2024-03-29 13:01] LABS: Hemoglobin A1C% w Est Avg Glu 5.7 % (4.0-6.0)
== END ==
PROVIDERS: PCP Internal Medicine; Referring Provider Internal Medicine; Visit Provider Internal Medicine
DX: E11.69 Type 2 diabetes mellitus with other specified complication (principal); E78.5 Hyperlipidemia, unspecified; E78.2 Mixed hyperlipidemia
CPT/HCPCS: 36415; 80048; 80061; 83036; 84450

== ENCOUNTER → 2024-07-04 13:55 | Outpatient (CLI) | payer MEDICARE, OTHER, SELFPAY ==
--- NOTE | 2024-07-04 13:56 | DI.MG.S_ITS ---
MM screening mammo BI: 07/04/2024. BI-RADS: 1 CLINICAL: 68-year old female for bilateral screening mammogram. Tyrer-Cuzick lifetime risk of 3.0%. No personal or first-degree family history of breast cancer. PRIOR EXAMS 08/29/2022, 03/25/2020, 01/07/2019, 01/11/2017, 02/09/2015. MAMMOGRAPHY TECHNIQUE: 2D and 3D (tomosynthesis) digital mammographic views obtained, with additional images as needed for full coverage. Current study was also evaluated with a Computer Aided Detection (CAD) system. DENSITY B. There are scattered areas of fibroglandular density. MAMMOGRAPHY FINDINGS Bilateral: No suspicious mass, asymmetry, microcalcification, or other abnormality seen. IMPRESSION: * No evidence of malignancy. RECOMMENDATIONS Bilateral * Annual screening mammography. OVERALL ASSESSMENT CATEGORY BI-RADS-1: Negative. The [employer] recommends annual screening mammography beginning at age 40 for women with average risk of breast cancer. ELECTRONICALLY SIGNED: Glenny Maldonado M.D. on 07/08/2024 at 12:59:24 AM PT Interpreting Station ID: [id number]
== END ==
LOC: MAMMO 13:56
PROVIDERS: PCP Internal Medicine; Referring Provider Internal Medicine; Visit Provider Internal Medicine
DX: Z12.31 Encounter for screening mammogram for malignant neoplasm of breast (principal)
CPT/HCPCS: 77063; 77067

== ENCOUNTER → 2024-10-01 14:39 | Outpatient (CLI) | payer MEDICARE, OTHER, SELFPAY ==
--- NOTE | 2024-10-01 14:42 | DI.RAD.S_ITS ---
PROCEDURE: XR DEXA AXIAL SKELETON INDICATIONS: osteopenia COMPARISON: [facility], , XR DEXA AXIAL SKELETON, 08/29/2022, 14:58. [facility], CR, XR DEXA AXIAL SKELETON, 05/10/2018, 13:15. FINDINGS: Lumbar Spine: Bone mineral density 0.880 g/cm2, T score -1.5, decreased by 3.3%. Left Femoral Neck: Bone mineral density 0.629 g/cm2, T score -2.0. Left Hip: Bone mineral density 0.793 g/cm2, T score -1.2, increased by 4.9%. Fracture Risk Calculation (when applicable): 10-year fracture risk of a major osteoporotic fracture 11 percent and of a hip fracture 1.8 percent. (T score greater or equal to -1.0 to: NORMAL) (T score from -1.1 to -2.4: OSTEOPENIA) (T score less than or equal to -2.5: OSTEOPOROSIS) IMPRESSION: Low bone mineral density (osteopenia) by WHO classification. Follow-up guidelines as follows: Osteoporosis: Consider a repeat DEXA and Vertebral Fracture Assessment (VFA) exam in 2 years or sooner if medically necessary, to reassess this patient's status. Osteopenia: Consider a repeat DEXA in 2-3 years to reassess this patient's status, or if there is a new clinical indication. Normal: Consider a repeat DEXA in 5 years or sooner, or if there is a new clinical indication. All treatment decisions require clinical judgment and consideration of individual patient factors, including patient preferences, comorbidities, previous drug use, risk factors not captured in the FRAX model (e.g., frailty, falls, vitamin D deficiency, increased bone turnover, interval significant decline in bone density ) and possible under- or over-estimation of fracture risk by FRAX. In addition, the NOF Guide recommends that FDA-approved medical therapies be considered in postmenopausal women and men age >= 50 years with a: * Hip or vertebral (clinical or morphometric) fracture * T-score of <=-2.5 at the spine or hip * Ten-year fracture probability by FRAX of >= 3% for hip fracture or >=20% for major osteoporotic fracture. Dictated by: Jerome Chapa M.D. on 10/01/2024 at 19:49 Approved by: Jerome Chapa M.D. on 10/01/2024 at 19:50
[2024-10-01 16:38] LABS: Hemoglobin A1C% w Est Avg Glu 6.0 % (4.0-6.0)
[2024-10-01 16:50] LABS: Blood Urea Nitrogen 17 mg/dL (7-17); Calcium 9.5 mg/dL (8.4-10.2); Carbon Dioxide 28 mmol/L (22-32); Chloride 100 mmol/L (98-107); Estimated Glomerular Filt Rate > 60 mL/min (>60); Glucose 105 mg/dL (70-99); HEMOLYSIS < 15 (0-50); Potassium 4.0 mmol/L (3.4-5.1); Sodium 138 mmol/L (137-145)
== END ==
PROVIDERS: PCP Internal Medicine; Referring Provider Internal Medicine; Visit Provider Internal Medicine
DX: M85.89 Other specified disorders of bone density and structure, multiple sites (principal); E11.69 Type 2 diabetes mellitus with other specified complication; E78.5 Hyperlipidemia, unspecified; I10 Essential (primary) hypertension
CPT/HCPCS: 36415; 77080; 80048; 82043; 82570; 83036; 84450

== ENCOUNTER → 2025-01-13 13:50 | Outpatient (CLI) | payer MEDICARE, OTHER, SELFPAY ==
[2025-01-13 14:45] LABS: Hemoglobin A1C% w Est Avg Glu 5.4 % (4.0-6.0)
[2025-01-13 14:59] LABS: Blood Urea Nitrogen 20 mg/dL (7-17); Calcium 9.7 mg/dL (8.4-10.2); Carbon Dioxide 29 mmol/L (22-32); Chloride 99 mmol/L (98-107); Estimated Glomerular Filt Rate > 60 mL/min (>60); Glucose 99 mg/dL (70-99); HEMOLYSIS < 15 (0-50); Potassium 3.2 mmol/L (3.4-5.1); Sodium 139 mmol/L (137-145)
== END ==
PROVIDERS: PCP Internal Medicine; Referring Provider Internal Medicine; Visit Provider Internal Medicine
DX: E11.69 Type 2 diabetes mellitus with other specified complication (principal); E78.5 Hyperlipidemia, unspecified
CPT/HCPCS: 36415; 80048; 83036